=== PATIENT | female | born 1995 | race Caucasian/White ===

== ENCOUNTER 2023-09-02 11:27 | Inpatient (IN) | payer OTHER ==
[2023-09-02] MEDS: METOCLOPRAMIDE HCL INJECTION 10 MG/2 ML VIAL IVPB ONE (12:00)
[2023-09-02] MEDS: DEXTROSE 5%-NORMAL SALINE 1,000 ML IV ONE ×2 (12:00→15:51)
[2023-09-02] MEDS ORDERED: METOCLOPRAMIDE HCL INJECTION 10 MG/2 ML VIAL ONE (12:02)
[2023-09-02 12:44] LABS: BASO % 0.4 % (0-2.0); EOS % 0.3 % (0-4.5); HEMATOCRIT 40.2 % (32.4-45.2); HEMOGLOBIN 14.3 GM/dL (10.7-15.3); LYMPH % 14.8 % (8-40); MCH 29.9 pg (25.7-33.7); MCHC 35.6 g/dl (32.0-36.0); MEAN CELL VOLUME 84.1 fl (80-96); MEAN PLT VOLUME 9.7 fl (7.5-11.1); MONO % 5.3 % (3.8-10.2); NEUT % 79.2 % (42.8-82.8); PLATELET COUNT 273 10^3/uL (134-434); RBC 4.78 M/mm3 (3.60-5.2); RDW 12.2 % (11.6-15.6)
[2023-09-02 13:08] LABS: POTASSIUM 3.1 mmol/L (3.5-5.1)
[2023-09-02 13:10] LABS: CALCIUM 10.3 mg/dL (8.5-10.1)
[2023-09-02 13:11] LABS: BLOOD UREA NITROGEN 8.7 mg/dL (7-18); MAGNESIUM 1.7 mg/dL (1.8-2.4)
[2023-09-02 13:14] LABS: CREATININE 0.6 mg/dL (0.55-1.3)
[2023-09-02 13:16] LABS: BILIRUBIN,TOTAL 4.3 mg/dL (0.2-1); TOT PROT 8.9 g/dl (6.4-8.2)
[2023-09-02 13:21] LABS: LACTIC ACID 2.1 mmol/L (0.4-2.0)
[2023-09-02] MEDS: FAMOTIDINE 20 MG/50 ML IVPB 20 MG/50 ML MG IVPB ONE (13:35)
[2023-09-02] MEDS ORDERED: FAMOTIDINE 20 MG/50 ML IVPB 20 MG/50 ML MG IVPB ONE (13:35)
[2023-09-02] MEDS ORDERED: KCL 10 MEQ IVPB 20 MEQ/200 ML INFUS.BAG IVPB ONE (13:36)
[2023-09-02] MEDS ORDERED: ONDANSETRON 4 MG/2 ML VIAL ONE (13:44)
[2023-09-02] MEDS: ONDANSETRON 4 MG/2 ML VIAL IVPUSH ONE (13:50)
[2023-09-02] MEDS: KCL 10 MEQ IVPB 10 MEQ/100 ML INFUS.BAG IVPB SCH (15:51)
[2023-09-02 17:27] LABS: POTASSIUM 3.2 mmol/L (3.5-5.1)
[2023-09-02 17:30] LABS: BLOOD UREA NITROGEN 6.1 mg/dL (7-18)
[2023-09-02 17:33] LABS: CREATININE 0.4 mg/dL (0.55-1.3)
[2023-09-02 17:34] LABS: BILIRUBIN,TOTAL 2.9 mg/dL (0.2-1)
[2023-09-02 17:37] LABS: ALBUMIN 2.6 g/dl (3.4-5.0); CALCIUM 7.6 mg/dL (8.5-10.1); TOT PROT 5.8 g/dl (6.4-8.2)
[2023-09-02 18:44] LABS: EPI CELLS >36 /uL (0-25.1); HYALINE CASTS 6 /uL (0-3.1); PH,URINE 6.5 (5.0-8.0); URINE APPEARANCE CLOUDY; URINE BACTERIA 3750 /uL (0-1359); URINE BILIRUBIN 2+ (NEGATIVE); URINE COLOR DK YELLOW; URINE GLUCOSE (UA) 3+ (NEGATIVE); URINE KETONE 4+ (NEGATIVE); URINE LEUK ESTERASE NEGATIVE (NEGATIVE); URINE NITRITE NEGATIVE (NEGATIVE); URINE PROTEIN 1+ (NEGATIVE); URINE RBC 61 /uL (0-23.9)
[2023-09-02 19:18] LABS: URINE WBC 79 /uL (0-25.8)
[2023-09-03] MEDS: MAGNESIUM OXIDE 400 MG TABLET (FP) PO ONE (00:58)
[2023-09-03] MEDS: MAGNESIUM 2GM/50ML STERILE WATER IVPB IVPB ONE (01:21)
[2023-09-03] MEDS: SODIUM CHLORIDE 1,000 ML IV SCH (01:22)
[2023-09-03 08:46] LABS: BASO % 0.4 % (0-2.0); EOS % 1.4 % (0-4.5); HEMATOCRIT 25.5 % (32.4-45.2); HEMOGLOBIN 9.2 GM/dL (10.7-15.3); LYMPH % 27.9 % (8-40); MCH 30.2 pg (25.7-33.7); MCHC 35.9 g/dl (32.0-36.0); MEAN CELL VOLUME 84.1 fl (80-96); MEAN PLT VOLUME 9.7 fl (7.5-11.1); MONO % 8.4 % (3.8-10.2); NEUT % 61.9 % (42.8-82.8); PLATELET COUNT 159 10^3/uL (134-434); RBC 3.03 M/mm3 (3.60-5.2); RDW 12.2 % (11.6-15.6); WHITE BLOOD COUNT 5.9 K/mm3 (4.0-10.0)
[2023-09-03 08:55] LABS: INR 1.29 (0.83-1.09); PROTHROMBIN TIME (PATIENT) 14.7 SEC (9.7-13.0)
[2023-09-03 09:10] LABS: CHLORIDE 110 mmol/L (98-107); SODIUM 139 mmol/L (136-145)
[2023-09-03 09:22] LABS: ALBUMIN 2.4 g/dl (3.4-5.0); BLOOD UREA NITROGEN 4.7 mg/dL (7-18); CO2 22 mmol/L (21-32); GLUCOSE,RANDOM 81 mg/dL (74-106)
[2023-09-03 09:23] LABS: CALCIUM 7.2 mg/dL (8.5-10.1); MAGNESIUM 2.1 mg/dL (1.8-2.4)
[2023-09-03 09:25] LABS: CREATININE 0.4 mg/dL (0.55-1.3); PHOSPHOROUS 1.7 mg/dL (2.5-4.9); SGOT/AST 81 U/L (15-37); SGPT/ALT 184 U/L (13-61)
[2023-09-03 09:26] LABS: TOT PROT 5.3 g/dl (6.4-8.2)
[2023-09-03 09:27] LABS: BILIRUBIN,TOTAL 2.1 mg/dL (0.2-1)
[2023-09-03 09:28] LABS: ALK PHOS 58 U/L (45-117)
[2023-09-03 09:45] LABS: ANION GAP 7 mmol/L (4-13); POTASSIUM 2.5 mmol/L (3.5-5.1)
[2023-09-03] MEDS ORDERED: KCL 10 MEQ IVPB 10 MEQ/100 ML INFUS.BAG IVPB SCH (10:30)
[2023-09-03] MEDS: ENOXAPARIN NA (PORCINE) 40 MG/0.4 ML DISP.SYRIN SQ SCH (11:09)
[2023-09-03] MEDS: SODIUM CHLORIDE 0.9%/KCL 20 MEQ/1,000 ML INFUS.BAG IV SCH ×2 (11:16→16:58)
[2023-09-03] MEDS: KCL 10 MEQ IVPB 10 MEQ/100 ML INFUS.BAG IVPB SCH ×2 (11:17→13:50)
[2023-09-03] MEDS: POLYETHYLENE GLYCOL (HEALTHYLAX) 3350 17 GM PACKET PO SCH (11:17)
[2023-09-03 12:09] LABS: BILIRUBIN,DIRECT 1.4 mg/dL (0.0-0.2)
[2023-09-03 12:20] LABS: POTASSIUM 2.5 mmol/L (3.5-5.1)
[2023-09-03] MEDS: POTASSIUM CHLORIDE ORAL LIQUID 20 MEQ/15 ML PO ONE (13:39)
[2023-09-03 15:40] VITALS: BMI 28.8
[2023-09-03] MEDS: PRENATAL VITAMINS W/ FOLIC ACID TABLET (FP) PO SCH (16:58)
[2023-09-03] MEDS: ONDANSETRON 4 MG/2 ML VIAL IVPUSH PRN (16:58)
[2023-09-03 17:45] LABS: METHADONE, UR NEGATIVE (NEGATIVE); URINE AMPHETAMINES NEGATIVE (NEGATIVE)
[2023-09-03 17:46] LABS: COCAINE, UR NEGATIVE (NEGATIVE); OPIATES, URI NEGATIVE (NEGATIVE); PHENCYCLIDINE,URINE NEGATIVE (NEGATIVE); URINE BARBITURATES NEGATIVE (NEGATIVE)
[2023-09-03 17:47] LABS: URINE BENZODIAZEPINES NEGATIVE (NEGATIVE)
[2023-09-03] MEDS: NAPH,MB-DB/K PH,MBDB POWDER PACKET PO SCH (21:55)
[2023-09-03] MEDS: METOCLOPRAMIDE HCL INJECTION 10 MG/2 ML VIAL IVPB ONE (21:55)
[2023-09-03] MEDS: POTASSIUM CHLORIDE 10 MEQ in SODIUM CHLORIDE 1,000 ML IVPB SCH (23:42)
[2023-09-04 09:22] LABS: BASO % 0.2 % (0-2.0); EOS % 2.2 % (0-4.5); HEMATOCRIT 25.8 % (32.4-45.2); HEMOGLOBIN 9.3 GM/dL (10.7-15.3); LYMPH % 33.8 % (8-40); MCH 30.1 pg (25.7-33.7); MCHC 35.9 g/dl (32.0-36.0); MEAN CELL VOLUME 83.8 fl (80-96); MEAN PLT VOLUME 9.9 fl (7.5-11.1); MONO % 8.2 % (3.8-10.2); NEUT % 55.6 % (42.8-82.8); PLATELET COUNT 143 10^3/uL (134-434); RBC 3.08 M/mm3 (3.60-5.2); RDW 12.4 % (11.6-15.6); WHITE BLOOD COUNT 4.5 K/mm3 (4.0-10.0)
[2023-09-04 09:29] LABS: CHLORIDE 104 mmol/L (98-107); SODIUM 136 mmol/L (136-145)
[2023-09-04 09:31] LABS: ALBUMIN 2.6 g/dl (3.4-5.0); CO2 24 mmol/L (21-32); GLUCOSE,RANDOM 81 mg/dL (74-106); MAGNESIUM 1.7 mg/dL (1.8-2.4)
[2023-09-04 09:34] LABS: CREATININE 0.3 mg/dL (0.55-1.3); PHOSPHOROUS 2.9 mg/dL (2.5-4.9); SGOT/AST 78 U/L (15-37); SGPT/ALT 186 U/L (13-61)
[2023-09-04 09:35] LABS: BILIRUBIN,TOTAL 1.7 mg/dL (0.2-1)
[2023-09-04 09:36] LABS: TOT PROT 5.3 g/dl (6.4-8.2)
[2023-09-04 09:37] LABS: ALK PHOS 59 U/L (45-117); ANION GAP 8 mmol/L (4-13); BLOOD UREA NITROGEN 2.6 mg/dL (7-18); CALCIUM 8.3 mg/dL (8.5-10.1); POTASSIUM 2.5 mmol/L (3.5-5.1)
[2023-09-04] MEDS: THIAMINE HCL 200 MG/2 ML VIAL IVPB SCH (10:17)
[2023-09-04 10:37] LABS: INR 1.34 (0.83-1.09)
[2023-09-04 11:01] LABS: IRON SERUM 97 ug/dL (50-175); TOTAL IRON BINDING CAPACITY 194 ug/dL (250-450)
[2023-09-04 11:43] LABS: EPI CELLS >36 /uL (0-25.1); HYALINE CASTS 2 /uL (0-3.1); PH,URINE 6.5 (5.0-8.0); URINE APPEARANCE CLOUDY; URINE BACTERIA 1686 /uL (0-1359); URINE BILIRUBIN 1+ (NEGATIVE); URINE COLOR DK YELLOW; URINE GLUCOSE (UA) NEGATIVE (NEGATIVE); URINE KETONE 3+ (NEGATIVE); URINE LEUK ESTERASE TRACE (NEGATIVE); URINE NITRITE NEGATIVE (NEGATIVE); URINE PROTEIN 2+ (NEGATIVE); URINE RBC 17 /uL (0-23.9); URINE WBC 35 /uL (0-25.8)
[2023-09-04] MEDS: POTASSIUM CHLORIDE ORAL LIQUID 20 MEQ/15 ML PO ONE ×2 (11:54→23:48)
[2023-09-04 12:11] LABS: YEAST NONE SEEN (NEGATIVE)
[2023-09-04] MEDS: KCL 20 MEQ PREMIX BAG 20 MEQ/100 ML INFUS.BAG IVPB SCH (12:33)
[2023-09-04] MEDS: MAGNESIUM 2GM/50ML STERILE WATER IVPB IVPB ONE ×3 (13:42→22:55)
[2023-09-04] MEDS ORDERED: ONDANSETRON 4 MG/2 ML VIAL IVPUSH PRN (14:20)
[2023-09-04] MEDS ORDERED: ONDANSETRON *ODT* 4 MG TABLET SL PRN (15:30)
[2023-09-04] MEDS: KCL 10 MEQ IVPB 10 MEQ/100 ML INFUS.BAG IVPB SCH ×2 (15:39→19:46)
[2023-09-04] MEDS: POTASSIUM CHLORIDE 20 MEQ in SODIUM CHLORIDE 1,000 ML IVPB SCH (15:39)
[2023-09-04 15:42] LABS: POTASSIUM 2.4 mmol/L (3.5-5.1)
[2023-09-04 15:43] LABS: MAGNESIUM 2.5 mg/dL (1.8-2.4)
[2023-09-04 15:49] LABS: PHOSPHOROUS 2.4 mg/dL (2.5-4.9); POTASSIUM 2.5 mmol/L (3.5-5.1)
[2023-09-04] MEDS: POTASSIUM CHLORIDE ORAL LIQUID 20 MEQ/15 ML PO SCH (16:27)
[2023-09-04] MEDS: POLYETHYLENE GLYCOL (HEALTHYLAX) 3350 17 GM PACKET PO SCH (21:16)
[2023-09-04] MEDS: NAPH,MB-DB/K PH,MBDB POWDER PACKET PO SCH (21:17)
[2023-09-04 22:01] LABS: MAGNESIUM 1.7 mg/dL (1.8-2.4)
[2023-09-04 22:05] LABS: POTASSIUM > 10.0 mmol/L (3.5-5.1)
[2023-09-04 23:20] LABS: POTASSIUM 2.9 mmol/L (3.5-5.1)
[2023-09-05 08:35] LABS: BASO % 0.2 % (0-2.0); HEMATOCRIT 21.6 % (32.4-45.2); HEMOGLOBIN 7.6 GM/dL (10.7-15.3); LYMPH % 35.4 % (8-40); MCHC 35.3 g/dl (32.0-36.0); MEAN CELL VOLUME 84.8 fl (80-96); MEAN PLT VOLUME 9.9 fl (7.5-11.1); NEUT % 55.4 % (42.8-82.8); PLATELET COUNT 127 10^3/uL (134-434); RBC 2.54 M/mm3 (3.60-5.2); RDW 12.5 % (11.6-15.6); WHITE BLOOD COUNT 4.3 K/mm3 (4.0-10.0)
[2023-09-05 08:52] LABS: CHLORIDE 121 mmol/L (98-107); SODIUM 144 mmol/L (136-145)
[2023-09-05 09:02] LABS: ANION GAP 2 mmol/L (4-13); CO2 22 mmol/L (21-32); GLUCOSE,RANDOM 61 mg/dL (74-106); MAGNESIUM 1.7 mg/dL (1.8-2.4)
[2023-09-05 09:03] LABS: SGPT/ALT 159 U/L (13-61)
[2023-09-05 09:04] LABS: CREATININE < 0.2 mg/dL (0.55-1.3); SGOT/AST 64 U/L (15-37)
[2023-09-05 09:05] LABS: BILIRUBIN,TOTAL 0.8 mg/dL (0.2-1); TOT PROT 3.9 g/dl (6.4-8.2)
[2023-09-05 09:06] LABS: ALK PHOS 43 U/L (45-117)
[2023-09-05 09:12] LABS: ALBUMIN 1.8 g/dl (3.4-5.0); BLOOD UREA NITROGEN 1.2 mg/dL (7-18); CALCIUM 6.1 mg/dL (8.5-10.1)
[2023-09-05] MEDS: THIAMINE HCL 200 MG/2 ML VIAL IVPB SCH (09:29)
[2023-09-05] MEDS: PRENATAL VITAMINS W/ FOLIC ACID TABLET (FP) PO SCH (09:30)
[2023-09-05] MEDS: ENOXAPARIN NA (PORCINE) 40 MG/0.4 ML DISP.SYRIN SQ SCH (09:30)
[2023-09-05 10:16] LABS: CHLORIDE 107 mmol/L (98-107); SODIUM 140 mmol/L (136-145)
[2023-09-05 10:19] LABS: ANION GAP 6 mmol/L (4-13); CO2 27 mmol/L (21-32); GLUCOSE,RANDOM 101 mg/dL (74-106); MAGNESIUM 2.1 mg/dL (1.8-2.4)
[2023-09-05 10:22] LABS: CREATININE 0.4 mg/dL (0.55-1.3); SGOT/AST 87 U/L (15-37); SGPT/ALT 220 U/L (13-61)
[2023-09-05 10:23] LABS: TOT PROT 5.4 g/dl (6.4-8.2)
[2023-09-05 10:24] LABS: ALK PHOS 59 U/L (45-117)
[2023-09-05 10:25] LABS: ALBUMIN 2.4 g/dl (3.4-5.0); CALCIUM 7.9 mg/dL (8.5-10.1)
[2023-09-05 10:32] LABS: PHOSPHOROUS 2.4 mg/dL (2.5-4.9)
[2023-09-05 10:39] LABS: BASO % 0.3 % (0-2.0); EOS % 1.8 % (0-4.5); HEMATOCRIT 29.1 % (32.4-45.2); HEMOGLOBIN 10.2 GM/dL (10.7-15.3); LYMPH % 25.8 % (8-40); MCH 29.9 pg (25.7-33.7); MCHC 35.2 g/dl (32.0-36.0); MEAN PLT VOLUME 9.6 fl (7.5-11.1); NEUT % 65.1 % (42.8-82.8); PLATELET COUNT 165 10^3/uL (134-434); RBC 3.42 M/mm3 (3.60-5.2); RDW 12.4 % (11.6-15.6); WHITE BLOOD COUNT 5.5 K/mm3 (4.0-10.0)
[2023-09-05 11:04] LABS: CHLORIDE 106 mmol/L (98-107); SODIUM 139 mmol/L (136-145)
[2023-09-05 11:06] LABS: CALCIUM 8.3 mg/dL (8.5-10.1)
[2023-09-05 11:07] LABS: ALBUMIN 2.8 g/dl (3.4-5.0); CO2 27 mmol/L (21-32); GLUCOSE,RANDOM 96 mg/dL (74-106); MAGNESIUM 2.1 mg/dL (1.8-2.4)
[2023-09-05 11:10] LABS: CREATININE 0.5 mg/dL (0.55-1.3); SGOT/AST 104 U/L (15-37); SGPT/ALT 263 U/L (13-61)
[2023-09-05 11:11] LABS: BILIRUBIN,TOTAL 1.2 mg/dL (0.2-1); TOT PROT 6.3 g/dl (6.4-8.2)
[2023-09-05 11:12] LABS: ALK PHOS 69 U/L (45-117); ANION GAP 6 mmol/L (4-13); BLOOD UREA NITROGEN 2.1 mg/dL (7-18); POTASSIUM 2.6 mmol/L (3.5-5.1)
[2023-09-05] MEDS: VITAMIN B COMPLEX W/C COMBO TABLET (FP) PO SCH (13:20)
[2023-09-05] MEDS: KCL 10 MEQ IVPB 10 MEQ/100 ML INFUS.BAG IVPB SCH ×2 (13:20→21:16)
[2023-09-05] MEDS: FAMOTIDINE 20 MG TABLET PO SCH (13:21)
[2023-09-05] MEDS: POTASSIUM CHLORIDE ORAL LIQUID 20 MEQ/15 ML PO ONE (13:30)
[2023-09-05] MEDS: POTASSIUM CHLORIDE TABS 20 MEQ TABLET.ER (FP) PO ONE (13:47)
[2023-09-05] MEDS ORDERED: PYRIDOXINE HCL 100 MG/1 ML VIAL IVPB SCH (15:00)
[2023-09-05] MEDS: PYRIDOXINE HCL (B-6) 50 MG TABLET (FP) PO SCH (15:44)
[2023-09-05 16:18] LABS: CHLORIDE 106 mmol/L (98-107); SODIUM 139 mmol/L (136-145)
[2023-09-05 16:20] LABS: CALCIUM 8.7 mg/dL (8.5-10.1)
[2023-09-05 16:21] LABS: ALBUMIN 2.9 g/dl (3.4-5.0); CO2 27 mmol/L (21-32); GLUCOSE,RANDOM 98 mg/dL (74-106)
[2023-09-05 16:24] LABS: CREATININE 0.5 mg/dL (0.55-1.3); SGOT/AST 96 U/L (15-37); SGPT/ALT 244 U/L (13-61)
[2023-09-05 16:26] LABS: ALK PHOS 67 U/L (45-117); ANION GAP 6 mmol/L (4-13); BILIRUBIN,TOTAL 1.2 mg/dL (0.2-1); BLOOD UREA NITROGEN 1.9 mg/dL (7-18); POTASSIUM 2.7 mmol/L (3.5-5.1)
[2023-09-05 18:39] LABS: POTASSIUM 3.2 mmol/L (3.5-5.1)
[2023-09-05] MEDS: POTASSIUM CHLORIDE TABS 20 MEQ TABLET.ER (FP) PO SCH (21:16)
[2023-09-06] MEDS: SODIUM CHLORIDE 500 ML IV STA (02:34)
[2023-09-06 08:30] LABS: BASO % 0.4 % (0-2.0); EOS % 1.8 % (0-4.5); HEMATOCRIT 25.4 % (32.4-45.2); HEMOGLOBIN 8.8 GM/dL (10.7-15.3); MCH 29.8 pg (25.7-33.7); MCHC 34.8 g/dl (32.0-36.0); MEAN CELL VOLUME 85.8 fl (80-96); MEAN PLT VOLUME 9.9 fl (7.5-11.1); MONO % 7.1 % (3.8-10.2); NEUT % 59.7 % (42.8-82.8); PLATELET COUNT 151 10^3/uL (134-434); RBC 2.96 M/mm3 (3.60-5.2); RDW 12.5 % (11.6-15.6); WHITE BLOOD COUNT 5.3 K/mm3 (4.0-10.0)
[2023-09-06 08:44] LABS: CHLORIDE 109 mmol/L (98-107); POTASSIUM 3.2 mmol/L (3.5-5.1); SODIUM 141 mmol/L (136-145)
[2023-09-06 08:55] LABS: ALBUMIN 2.3 g/dl (3.4-5.0); ANION GAP 5 mmol/L (4-13); CALCIUM 7.8 mg/dL (8.5-10.1); CO2 26 mmol/L (21-32); GLUCOSE,RANDOM 74 mg/dL (74-106)
[2023-09-06 08:56] LABS: MAGNESIUM 1.8 mg/dL (1.8-2.4)
[2023-09-06 08:58] LABS: CREATININE 0.2 mg/dL (0.55-1.3); SGOT/AST 71 U/L (15-37)
[2023-09-06 08:59] LABS: SGPT/ALT 201 U/L (13-61); TOT PROT 5.1 g/dl (6.4-8.2)
[2023-09-06 09:00] LABS: BILIRUBIN,TOTAL 0.8 mg/dL (0.2-1)
[2023-09-06 09:01] LABS: ALK PHOS 55 U/L (45-117); BLOOD UREA NITROGEN 1.1 mg/dL (7-18)
[2023-09-06] MEDS: SODIUM CHLORIDE 1,000 ML IV SCH (09:48)
[2023-09-06] MEDS: POTASSIUM CHLORIDE TABS 20 MEQ TABLET.ER (FP) PO ONE (09:49)
[2023-09-06] MEDS: KCL 10 MEQ IVPB 10 MEQ/100 ML INFUS.BAG IVPB SCH (12:33)
[2023-09-06] MEDS: LACTATED RINGERS SOLUTION 1,000 ML/1,000 ML INFUS.BAG IV SCH (12:33)
[2023-09-06] MEDS: MAGNESIUM OXIDE 400 MG TABLET (FP) PO ONE (12:33)
[2023-09-06 21:50] LABS: MAGNESIUM 1.7 mg/dL (1.8-2.4)
[2023-09-06] MEDS: POTASSIUM CHLORIDE TABS 20 MEQ TABLET.ER (FP) PO SCH (21:52)
[2023-09-07 08:18] LABS: BASO % 0.3 % (0-2.0); EOS % 1.8 % (0-4.5); HEMATOCRIT 25.6 % (32.4-45.2); HEMOGLOBIN 8.8 GM/dL (10.7-15.3); LYMPH % 35.2 % (8-40); MCH 29.8 pg (25.7-33.7); MCHC 34.5 g/dl (32.0-36.0); MEAN CELL VOLUME 86.5 fl (80-96); MEAN PLT VOLUME 9.4 fl (7.5-11.1); MONO % 7.4 % (3.8-10.2); NEUT % 55.3 % (42.8-82.8); PLATELET COUNT 154 10^3/uL (134-434); RBC 2.96 M/mm3 (3.60-5.2); RDW 12.4 % (11.6-15.6); WHITE BLOOD COUNT 5.2 K/mm3 (4.0-10.0)
[2023-09-07 08:34] LABS: CHLORIDE 106 mmol/L (98-107); SODIUM 139 mmol/L (136-145)
[2023-09-07 08:40] LABS: ALBUMIN 2.3 g/dl (3.4-5.0); ANION GAP 4 mmol/L (4-13); CALCIUM 8.4 mg/dL (8.5-10.1); CO2 29 mmol/L (21-32); GLUCOSE,RANDOM 78 mg/dL (74-106); MAGNESIUM 1.7 mg/dL (1.8-2.4)
[2023-09-07 08:43] LABS: CREATININE 0.2 mg/dL (0.55-1.3); SGPT/ALT 184 U/L (13-61)
[2023-09-07 08:44] LABS: SGOT/AST 55 U/L (15-37)
[2023-09-07 08:45] LABS: BILIRUBIN,TOTAL 0.7 mg/dL (0.2-1); TOT PROT 5.1 g/dl (6.4-8.2)
[2023-09-07 08:46] LABS: ALK PHOS 53 U/L (45-117); BLOOD UREA NITROGEN 1.5 mg/dL (7-18)
[2023-09-07] MEDS: MAGNESIUM OXIDE 400 MG TABLET (FP) PO ONE (09:29)
[2023-09-07 21:13] LABS: URINE APPEARANCE CLEAR; URINE BILIRUBIN NEGATIVE (NEGATIVE); URINE COLOR YELLOW; URINE GLUCOSE (UA) NEGATIVE (NEGATIVE); URINE KETONE NEGATIVE (NEGATIVE); URINE LEUK ESTERASE NEGATIVE (NEGATIVE); URINE NITRITE NEGATIVE (NEGATIVE); URINE PROTEIN NEGATIVE (NEGATIVE)
[2023-09-08 08:17] LABS: BASO % 0.3 % (0-2.0); HEMOGLOBIN 9.1 GM/dL (10.7-15.3); LYMPH % 40.7 % (8-40); MCH 30.2 pg (25.7-33.7); MCHC 34.9 g/dl (32.0-36.0); MEAN CELL VOLUME 86.4 fl (80-96); MEAN PLT VOLUME 9.8 fl (7.5-11.1); MONO % 7.5 % (3.8-10.2); NEUT % 49.5 % (42.8-82.8); PLATELET COUNT 174 10^3/uL (134-434); RBC 3.01 M/mm3 (3.60-5.2); RDW 12.5 % (11.6-15.6); WHITE BLOOD COUNT 5.2 K/mm3 (4.0-10.0)
[2023-09-08 08:33] LABS: POTASSIUM 4.2 mmol/L (3.5-5.1)
[2023-09-08 08:35] LABS: CALCIUM 8.6 mg/dL (8.5-10.1)
[2023-09-08 08:37] LABS: ALBUMIN 2.4 g/dl (3.4-5.0); BLOOD UREA NITROGEN 3.6 mg/dL (7-18); MAGNESIUM 1.7 mg/dL (1.8-2.4)
[2023-09-08 08:39] LABS: CREATININE 0.3 mg/dL (0.55-1.3)
[2023-09-08 08:40] LABS: TOT PROT 5.4 g/dl (6.4-8.2)
[2023-09-08 08:41] LABS: BILIRUBIN,TOTAL 0.6 mg/dL (0.2-1)
[2023-09-08] MEDS: MAGNESIUM OXIDE 400 MG TABLET (FP) PO ONE ×2 (09:36→17:28)
[2023-09-08] MEDS: IRON SUCROSE INJECTION 200 MG in SODIUM CHLORIDE 100 ML IVPB ONE (11:15)
[2023-09-09 08:24] LABS: BASO % 0.4 % (0-2.0); EOS % 1.9 % (0-4.5); HEMATOCRIT 26.2 % (32.4-45.2); HEMOGLOBIN 9.1 GM/dL (10.7-15.3); LYMPH % 32.2 % (8-40); MCH 29.8 pg (25.7-33.7); MCHC 34.5 g/dl (32.0-36.0); MEAN CELL VOLUME 86.3 fl (80-96); MEAN PLT VOLUME 9.4 fl (7.5-11.1); MONO % 9.5 % (3.8-10.2); PLATELET COUNT 190 10^3/uL (134-434); RBC 3.04 M/mm3 (3.60-5.2); RDW 12.5 % (11.6-15.6); WHITE BLOOD COUNT 5.6 K/mm3 (4.0-10.0)
[2023-09-09 08:34] LABS: POTASSIUM 3.9 mmol/L (3.5-5.1)
[2023-09-09 08:36] LABS: CALCIUM 8.6 mg/dL (8.5-10.1)
[2023-09-09 08:37] LABS: ALBUMIN 2.5 g/dl (3.4-5.0); MAGNESIUM 1.9 mg/dL (1.8-2.4)
[2023-09-09 08:38] LABS: BLOOD UREA NITROGEN 4.6 mg/dL (7-18)
[2023-09-09 08:40] LABS: CREATININE 0.3 mg/dL (0.55-1.3)
[2023-09-09 08:41] LABS: BILIRUBIN,TOTAL 0.6 mg/dL (0.2-1); TOT PROT 5.5 g/dl (6.4-8.2)
[2023-09-09] MEDS: POTASSIUM CHLORIDE TABS 20 MEQ TABLET.ER (FP) PO SCH (11:19)
[2023-09-09 11:31] VITALS: BP 109/66; PULSE 82; RESP 18; TEMP 97.8
== END 2023-09-09 13:54 | disposition home or self-care (01) | DRG 566 ==
LOC: JER 11:27 → JERBED 17:57 → INTOOBSV 17:57 → J8W 20:30 → OBSVTOIN 09-03 09:22 → J4W 09-04 12:38 → J6S 09-09 11:04
PROVIDERS: ADMIT Obstetrics & Gynecology; ATTEND Internal Medicine
DX: O21.1 Hyperemesis gravidarum with metabolic disturbance (principal); O26.891 Other specified pregnancy related conditions, first trimester; E83.42 Hypomagnesemia; O99.011 Anemia complicating pregnancy, first trimester; R74.8 Abnormal levels of other serum enzymes; Z3A.13 13 weeks gestation of pregnancy; D64.9 Anemia, unspecified; E87.6 Hypokalemia; J45.909 Unspecified asthma, uncomplicated; K21.9 Gastro-esophageal reflux disease without esophagitis; I95.9 Hypotension, unspecified
CPT/HCPCS: 36415; 76700-TC; 76815; 80053; 80307; 81003; 82010; 82248; 82550; 82728; 82962; 83036; 83516; 83540; 83550; 83605; 83690; 83735; 84100; 84132; 84443; 84702; 85025; 85610; 86038; 86704; 86706; 86709; 86803; 86850; 86900; 86901; 87086; 87340; 87350; 87517; 93005; 93010; 93306-TC; 99285-25; G0378; J1756